=== PATIENT | male | born 1960 | race Caucasian/White ===

== ENCOUNTER 2017-10-18 15:53 | Emergency (ER) | payer SELFPAY ==
[~2017-10-18] VITALS: Ht 182.9 cm; Wt 127.3 kg
[2017-10-18 15:57] VITALS: TEMP 97.2
[2017-10-18 17:21] LABS: BASO % 0.3 % (0.0-2.0); EOS # 0.1 (0.0-0.7); EOS % 0.5 % (0-4.0); GRAN # 7.9 (1.4-6.5); GRAN % 81.6 % (42.2-75.2); HEMATOCRIT 42.2 % (42.0-52.0); HEMOGLOBIN 14.5 g/dl (13.5-18.0); LYMPH # 1.1 (1.2-3.4); LYMPH % 10.9 % (20.0-51.0); MEAN CELL VOLUME 88 fl (80.0-100.0); MEAN CORPUSCULAR HEMOGLOBIN 30 pg (27.0-31.0); MEAN CORPUSCULAR HGB CONC 34 g/dl (33.0-37.0); MEAN PLATELET VOLUME 9.3 fl (7.4-10.4); MONO # 0.6 (0.1-0.6); MONO % 6.2 % (1.7-9.3); PLATELET COUNT 164 K/mm3 (130-400); RED BLOOD COUNT 4.78 M/mm3 (4.20-5.60); REDCELL DISTRIBUTION WIDTH-CV 12.7 % (11.5-14.5)
[2017-10-18 17:29] LABS: ALBUMIN 4.3 gm/dL (3.5-5.0); BILIRUBIN,TOTAL 0.5 mg/dL (0.0-1.0); CALCIUM 8.9 mg/dL (8.4-10.2); CREATININE, serum 0.88 mg/dL (0.66-1.25); POTASSIUM 3.9 mmol/L (3.4-5.0); TOTAL PROTEIN 7.2 gm/dL (6.4-8.2)
[2017-10-18] MEDS ORDERED: PRINIVIL20 MG PO ×2 (18:37→18:38)
[2017-10-18 19:03] VITALS: BP 134/86; PULSE 75
== END 2017-10-18 19:10 | disposition short-term general hospital (02) ==
LOC: COL.ER 15:53
PROVIDERS: Emergency Medicine
DX: S01.01XA Laceration without foreign body of scalp, initial encounter (principal); S27.0XXA Traumatic pneumothorax, initial encounter; S22.5XXA Flail chest, initial encounter for closed fracture; I10 Essential (primary) hypertension; W17.89XA Other fall from one level to another, initial encounter
CPT/HCPCS: J1170; J3010; Q9967

== ENCOUNTER 2017-10-26 12:52 | Emergency (ER) | payer SELFPAY ==
[~2017-10-26] VITALS: Ht 182.9 cm; Wt 127.7 kg
[~2017-10-26 12:52] MED LIST: PRINIVIL20 MG PO
[2017-10-26 12:59] VITALS: TEMP 98
[2017-10-26] MEDS ORDERED: ROXICODONE 55 MG/TAB PO ×2 (13:02→14:05)
[2017-10-26 14:10] VITALS: BP 141/79; PULSE 81
== END 2017-10-26 14:10 | disposition home or self-care (01) ==
LOC: COL.ER 12:52
DX: S22.42XD Multiple fractures of ribs, left side, subsequent encounter for fracture with routine healing (principal); X58.XXXD Exposure to other specified factors, subsequent encounter

== ENCOUNTER 2017-12-13 08:59 | Outpatient (RCR) | payer OTHER ==
[~2017-12-13 08:59] MED LIST changes: +ROXICODONE 55 MG/TAB PO
== END 2018-01-27 | disposition home or self-care (01) ==
LOC: WSOH
DX: S22.42XA Multiple fractures of ribs, left side, initial encounter for closed fracture (principal); S43.102A Unspecified dislocation of left acromioclavicular joint, initial encounter; S01.01XA Laceration without foreign body of scalp, initial encounter; Z48.02 Encounter for removal of sutures; W17.89XA Other fall from one level to another, initial encounter; Y92.812 Truck as the place of occurrence of the external cause; Y93.H3 Activity, building and construction; Y99.0 Civilian activity done for income or pay; I10 Essential (primary) hypertension; Z79.899 Other long term (current) drug therapy

== ENCOUNTER 2019-12-26 19:47 | Emergency (ER) | payer BC ==
[~2019-12-26] VITALS: Ht 182.9 cm; Wt 129.5 kg
[2019-12-26 19:54] VITALS: BP 141/93; TEMP 98.1
[2019-12-26 20:34] VITALS: PULSE 91
== END 2019-12-26 20:33 | disposition home or self-care (01) ==
LOC: COL.ER 19:47
DX: S01.01XA Laceration without foreign body of scalp, initial encounter (principal); I10 Essential (primary) hypertension; W20.8XXA Other cause of strike by thrown, projected or falling object, initial encounter; Y93.E5 Activity, floor mopping and cleaning; Y92.009 Unspecified place in unspecified non-institutional (private) residence as the place of occurrence of the external cause

== ENCOUNTER → 2019-12-31 | Outpatient (CLI) | payer BC ==
[2019-12-31 14:26] VITALS: BP 106/78; PULSE 59; TEMP 98
== END ==
LOC: COL.ER 14:19
DX: Z48.02 Encounter for removal of sutures (principal)